=== PATIENT | female | born 1965 | race African-American/Black ===

== ENCOUNTER 2021-08-08 10:31 | Emergency (ER) | payer OTHER ==
[~2021-08-08] VITALS: Ht 160 cm; Wt 122.5 kg
--- NOTE | 2021-08-08 10:57 | NUR ---
Patient discharged to home in stable condition. Written and verbal after care instructions given. Patient verbalizes understanding of instructions. Stressed follow up or return to ER for worsening s/s.
[2021-08-08 10:58] VITALS: BP 128/68
[2021-08-08] MEDS ORDERED: IBUPROFEN 800 MG TABLET ONE (11:00)
[2021-08-08] MEDS: IBUPROFEN 800 MG TABLET PO ONE (11:01)
[2021-08-08] MEDS ORDERED: IBUP800T54 PO (16:47)
== END 2021-08-08 11:03 | disposition home or self-care (01) ==
LOC: ER 10:31
DX: S49.82XA Other specified injuries of left shoulder and upper arm, initial encounter (principal); V49.40XA Driver injured in collision with unspecified motor vehicles in traffic accident, initial encounter; Y92.410 Unspecified street and highway as the place of occurrence of the external cause; M54.12 Radiculopathy, cervical region
CPT/HCPCS: A4663